=== PATIENT | male | born 1995 | race Caucasian/White ===

== ENCOUNTER 2017-04-22 13:18 | Emergency (ER) | payer OTHER ==
[~2017-04-22] VITALS: Ht 177.8 cm; Wt 56.7 kg
[2017-04-22 13:30] VITALS: BP 125/70; Ht 177.8 cm; Wt 56.7 kg
== END 2017-04-22 14:50 | disposition left against medical advice (07) ==
LOC: ED 13:18
DX: Z53.21 Procedure and treatment not carried out due to patient leaving prior to being seen by health care provider (principal)

== ENCOUNTER 2017-04-22 17:09 | Emergency (ER) | payer OTHER ==
[~2017-04-22] VITALS: Ht 175.3 cm; Wt 61.7 kg
[2017-04-22 17:34] VITALS: Ht 175.3 cm; Wt 61.7 kg
[2017-04-22 20:45] VITALS: BP 111/66
== END 2017-04-22 20:46 ==
LOC: ED 17:09
DX: S80.211A Abrasion, right knee, initial encounter (principal); V23.4XXA Motorcycle driver injured in collision with car, pick-up truck or van in traffic accident, initial encounter; Y93.I9 Activity, other involving external motion; Y99.8 Other external cause status; Y92.89 Other specified places as the place of occurrence of the external cause